=== PATIENT | female | born 1930 ===

== ENCOUNTER 2019-01-17 09:14 | Emergency (ER) | payer MEDICARE, BC ==
[2019-01-17 10:15] LABS: Hemoglobin 12.6 g/dL (12.0-16.0); Mean Corpuscular Hemoglobin 30.2 pg (27.0-31.0); Mean Corpuscular Volume 91.5 fL (78.0-98.0); Mean Platelet Volume 7.2 fL (7.4-10.4); Platelet Count 233 thou/uL (130-400); RBC Distribution Width 10.9 % (11.5-14.5); Red Blood Cell (RBC) Count 4.19 mill/uL (4.20-5.40); White Blood Cell (WBC) Count 19.2 thou/uL (4.8-10.8)
[2019-01-17 10:28] LABS: ALT (SGPT) 43 U/L (8-55); AST (SGOT) 45 U/L (5-34); Albumin 4.4 g/dL (3.4-4.8); Alkaline Phosphatase 76 U/L (40-150); Anion Gap 14 mmol/L (10-20); BUN (Urea Nitrogen) 26 mg/dL (9.8-20.1); Bilirubin, Total 0.9 mg/dL (0.2-1.2); Calc. Creatinine Clearance 0 mL/min (70-130); Calcium 9.7 mg/dL (7.8-10.44); Carbon Dioxide 31 mmol/L (23-31); Chloride 91 mmol/L (98-107); Estimated GFR-MDRD 49; Glucose 144 mg/dL (83-110); Lipase 6 U/L (8-78); Potassium 3.3 mmol/L (3.5-5.1); Protein, Total 7.4 g/dL (6.0-8.3); Sodium 133 mmol/L (136-145)
[2019-01-17 10:39] LABS: Band 17 % (5-11); Lymphocytes 6 % (21-51); MDiff Complete? YES; Monocytes 17 % (0-10); Neutrophil 52 % (42-75); RBC Morphology Normal; Reactive Lymphocytes 8 % (0-10)
== END 2019-01-17 11:54 | disposition left against medical advice (07) ==
LOC: ERS 09:14
DX: Z53.21 Procedure and treatment not carried out due to patient leaving prior to being seen by health care provider (principal)
CPT/HCPCS: 36415; 80053; 83690; 85025